=== PATIENT | female | born 1940 | race Caucasian/White ===

== ENCOUNTER 2016-09-03 09:49 | Emergency (ER) | payer MEDICARE ==
--- NOTE | 2016-09-03 10:11 | Emergency Department Record ---
History of Present Illness - General Chief Complaint: Shortness of breath Stated Complaint: SADE Time Seen by Provider: 09/03/16 10:09 Source: Patient Mode of Arrival: Ambulatory Limitations: No limitations - History of Present Illness Initial Comments: The patient is here due to a 2 hour hx of R posterior chest pain and SOB. The pain is sharp and stabbing and is worse with any movement and twisting. When she sits or lies still she has no pain. She denies any L sided CP, cough, fever , chills, or AP. The patient does have a hx of a PE in Dec and is on Coumadin now. Her last INR check was about a month ago and was therapeutic per the patient. MD Complaint: Chest pain Onset/Timin -: Hour(s) Radiation: Other Severity scale (1-10): 10 Quality: Sharp Consistency: Intermittent Improves With: Nothing Worsens With: Other Associated Symptoms: Pain with inspiration Treatments Prior to Arrival: None - Related Data Home Oxygen Therapy: No Home Medications Medication Instructions Recorded Confirmed Last Taken Warfarin Sodium 5 mg PO QD tab 07/26/16 09/03/16 09/02/16 Buspirone HCl [Buspar] 7.5 mg PO DAILY 09/03/16 09/03/16 09/02/16 Lisinopril 10 mg PO BID 09/03/16 09/03/16 09/03/16 Allergies Allergy/AdvReac Type Severity Reaction Status Date / Time codeine [CODEINE] Allergy Unknown PT UNSURE Verified 09/03/16 10:01 OF REACTION Penicillins [PENICILLINS] Allergy Unknown DIFFICULTY Verified 09/03/16 10:01 BREATHING acetaminophen [From Vicodin] AdvReac Unknown VOMITING Verified 09/03/16 10:01 hydrocodone bitartrate AdvReac Unknown VOMITING Verified 09/03/16 10:01 [From Vicodin] Travel Screening - Travel/Exposure Within Last 30 Days Have you traveled within the last 30 days?: No Review of Systems Constitutional: Denies: Chills, Fever Eyes: Denies: Eye discharge ENT: Denies: Congestion, Throat pain Respiratory: Reports: Dyspnea. Denies: Cough, Hemoptysis Cardiovascular: Denies: Arrhythmia Endocrine: Denies: Fatigue Gastrointestinal: Denies: Abdominal pain Genitourinary: Denies: Dysuria Musculoskeletal: Denies: Arthralgia Past Medical History - SOCIAL HISTORY Smoking Status: Never smoker Alcohol Use: None Drug Use: None - RESPIRATORY Hx Respiratory Disorders: Yes Hx Pulmonary Embolism: Yes (2015) - CARDIOVASCULAR Hx Cardio Disorders: Yes Hx Hypertension: Yes - NEURO Hx Neuro Disorders: Yes Hx TIA: Yes - GI Hx GI Disorders: Yes Hx Nausea/Vomiting: Yes - Hx Genitourinary Disorders: No - ENDOCRINE Hx Endocrine Disorders: Yes Hx Thyroid Disease: Yes - MUSCULOSKELETAL Hx Musculoskeletal Disorders: No - PSYCH Hx Psych Problems: Yes Hx Anxiety: Yes Hx Depression: Yes - HEMATOLOGY/ONCOLOGY Hx Hematology/Oncology Disorders: No Family Medical History Any Significant Family History?: No Physical Exam - General General Appearance: Alert, Oriented x3, Cooperative, No acute distress - Head Head exam: Atraumatic, Normocephalic, Normal inspection - Eye Eye exam: Normal appearance, PERRL - Neck Neck exam: Normal inspection, Full ROM. negative: Tenderness - Respiratory Respiratory exam: Normal lung sounds bilaterally, Chest wall tenderness (The R posterior chest pain is 100% reproducible with palpation of the R posterior lateral ribs.). negative: Respiratory distress - Cardiovascular Cardiovascular Exam: Regular rate, Normal rhythm, Normal heart sounds - GI/Abdominal GI/Abdominal exam: Soft, Normal bowel sounds. negative: Tenderness - Extremities Extremities exam: Normal inspection, Full ROM, Normal capillary refill. negative: Tenderness Image of Full Body: 1 - very tender to palpation which does reproduce the pain 100%. - Neurological Neurological exam: Alert, Normal gait. negative: Abnormal gait, Motor sensory deficit Course Vital Signs 09/03/16 09:56 Temperature 98.2 F Pulse Rate 73 Respiratory 20 Rate Blood Pressure 151/73 Pulse Ox 96 - Reevaluation(s) Reevaluation #1: The patient is doing a lot better at this time. She denies any pain, SOB, or SADE but is still having the R sided pain with any twisting or bending. 09/03/16 11:11 Reevaluation #2: The patient is doing very well at this time. She denies any pain or discomfort. On exam she is still having some pain with movement and palpation. I did again explain the test results to the patient and family and did discuss the need for F/U with her PCP. 09/03/16 11:19 Medical Decision Making - Data Complexity MDM Data: Labs Ordered and/or Reviewed, X-Ray Ordered and/or Reviewed, EKG Ordered and/or Reviewed - Lab Data Result diagrams: 09/03/16 10:07 09/03/16 10:07 - EKG Data -: EKG Interpreted by Me EKG: No Acute Changes, Unchanged From Previous - Radiology Data Radiology results: Report reviewed (CXR: Neg) Disposition Disposition: Discharge Clinical Impression: Chest wall pain Disposition: Home, Self-Care Condition: (1) Good Instructions: Chest Wall Pain (ED) Additional Instructions: Please use Tylenol or Tramadol for pain. Please continue your regular medicines. Please see your PCP for recheck if not better in 2 days and return to the ER for any increasing pain, fever, trouble breathing or shortness of breath. Forms: Patient Portal Access Time of Disposition: 11:21 Quality - Quality Measures Quality Measures: N/A - Blood Pressure Screening View Details: Yes Blood Pressure Classification: Hypertensive Reading Systolic Measurement: 151 Diastolic Measurement: 73 Screening for High Blood Pressure: < Pre-Hypertensive BP, F/U Documented > [ [id number]] Pre-Hypertensive Follow-up Interventions: Follow-up with rescreen every year.
[2016-09-03] MEDS ORDERED: TRAMADOL HCL 50 MG TABLET PO ONE (10:25)
[2016-09-03 10:36] LABS: BASO % 0.5 % (0-6); GRAN % 67.5 % (47-80); HEMATOCRIT 44.3 % (35.0-47.0); HEMOGLOBIN 14.1 gm/dl (11.6-16.0); LYMPH % 20.8 % (16-45); MEAN CORPUSCULAR HEMOGLOBIN 24.8 pg (27-33); MEAN CORPUSCULAR HGB CONC 31.8 g/dl (32-36); MEAN PLATELET VOLUME 9.1 fl (7.4-10.4); MONO % 8.2 % (0-9); PLATELET COUNT 358 K/uL (130-400); RED BLOOD COUNT 5.68 M/uL (3.80-5.40); RED CELL DISTRIBUTION WIDTH 15.6 % (11.5-14.5); WHITE BLOOD COUNT W/O DIFF 8.8 K/uL (4.2-12.2)
[2016-09-03 10:48] LABS: ANION GAP 11.5 (7-16); BLOOD UREA NITROGEN 18 mg/dL (7-17); CARBON DIOXIDE 29.5 mmol/L (22-30); CREATINE PHOSPHOKINASE 32 U/L (30-135); EST GLOMERULAR FILTRATION RATE 57 ml/min; GLUCOSE,RANDOM 108 mg/dL (70-110)
[2016-09-03 10:52] LABS: INR 2.51; PARTIAL THROMBOPLASTIN TIME 36.3 SECONDS (24.5-39.1); PROTHROMBIN TIME (PATIENT) 27.4 SECONDS (9.5-12.1)
[2016-09-03 10:56] LABS: D-DIMER 0.33 mg/L FEU (0-0.59)
[2016-09-03 10:57] LABS: CKMB 0.3 ug/L (0-6)
[2016-09-03 11:01] LABS: TROPONIN I < 0.012 ng/mL (0.00-0.034)
--- NOTE | 2016-09-04 14:30 | RADIOLOGY REPORT ---
EXAM: CHEST, TWO VIEWS HISTORY: ACUTE SHORTNESS OF BREATH AND DIZZINESS. TECHNIQUE: Two views of the chest were obtained. Comparison: Chest x-ray 09/16/15. FINDINGS: The lungs are clear. The cardiac silhouette, diaphragm, and osseous structures are unremarkable for age. IMPRESSION: NEGATIVE CHEST EXAMINATION. JOB NUMBER: [id number] MTDD
== END 2016-09-03 11:32 | disposition home or self-care (01) ==
LOC: ER 09:49
DX: R07.89 Other chest pain (principal); R06.02 Shortness of breath; R42 Dizziness and giddiness; I10 Essential (primary) hypertension; Z79.01 Long term (current) use of anticoagulants
CPT/HCPCS: 71020; 80048; 82550; 82553; 84484; 85025; 85379; 85610; 85730; 93005; 93010; 99284

== ENCOUNTER 2016-12-12 18:58 | Observation (INO) | payer MEDICARE ==
[2016-12-12 19:14] LABS: URINE APPEARANCE CLEAR; URINE BILIRUBIN NEGATIVE (NEGATIVE); URINE BLOOD NEGATIVE (NEGATIVE); URINE COLOR YELLOW; URINE GLUCOSE (UA) NEGATIVE (NEGATIVE); URINE KETONE NEGATIVE (NEGATIVE); URINE LEUKOCYTE ESTERASE NEGATIVE (NEGATIVE); URINE NITRITE NEGATIVE (NEGATIVE); URINE PROTEIN NEGATIVE (NEGATIVE); URINE UROBILINOGEN 0.2 E.U./dL (0.20 - 1.00)
[2016-12-12] MEDS ORDERED: MORPHINE SULFATE 5 MG/ML PFS IVP ONE (19:19)
[2016-12-12] MEDS ORDERED: ONDANSETRON HCL IV 4 MG/2 ML VIAL IVP ONE (19:19)
--- NOTE | 2016-12-12 19:24 | Emergency Department Record ---
History of Present Illness - General Chief Complaint: Abdominal Pain Stated Complaint: PAIN IN RT SIDE Time Seen by Provider: 12/12/16 19:04 Source: Patient Mode of Arrival: Wheelchair Limitations: No limitations - History of Present Illness Initial Comments: 76 yo female presents to ED for continued right sided flank/back pain symptoms. Patient was seen by her PCP 12/07/16 for similar symptoms, negative CT abdomen and pelvis. Patient reports pain with truncal movement, denies fevers, chills, nausea, or vomiting symptoms. Patient denies change in stools. Patient denies urinary symptoms or history of kidney stones. Patient has been taking Flexeril for her symptoms that has not significantly improved. MD Complaint: Flank pain Onset/Timin -: Week(s) Location: R Flank Severity: Moderate Quality: Aching Consistency: Intermittent Improves With: Nothing Worsens With: Movement Associated Symptoms: Denies other symptoms - Related Data Allergies Allergy/AdvReac Type Severity Reaction Status Date / Time codeine [CODEINE] Allergy Unknown PT UNSURE Verified 12/12/16 19:20 OF REACTION Penicillins [PENICILLINS] Allergy Unknown DIFFICULTY Verified 12/12/16 19:20 BREATHING hydrocodone bitartrate AdvReac Unknown VOMITING Verified 12/12/16 19:20 [From Vicodin] Review of Systems Constitutional: Denies: Chills, Fever, Malaise, Night sweats Eyes: Denies: Eye discharge, Eye pain ENT: Denies: Congestion, Ear pain Respiratory: Denies: Cough, Dyspnea Cardiovascular: Denies: Chest pain, Dyspnea on exertion Endocrine: Denies: Fatigue, Heat or cold intolerance Gastrointestinal: Denies: Abdominal pain, Constipation, Nausea, Vomiting Genitourinary: Denies: Incontinence, Retention Musculoskeletal: Reports: Back pain. Denies: Arthralgia, Gout, Joint swelling Skin: Denies: Bruising, Change in color Neurological: Denies: Abnormal gait, Confusion, Headache, Seizure Psychiatric: Denies: Anxiety Hematological/Lymphatic: Denies: Anemia Past Medical History - SOCIAL HISTORY Smoking Status: Never smoker Drug Use: None - RESPIRATORY Hx Respiratory Disorders: Yes Hx Pulmonary Embolism: Yes (2015) - CARDIOVASCULAR Hx Cardio Disorders: Yes Hx Hypertension: Yes - NEURO Hx Neuro Disorders: Yes Hx TIA: Yes - GI Hx GI Disorders: Yes Hx Nausea/Vomiting: Yes - Hx Genitourinary Disorders: No - ENDOCRINE Hx Endocrine Disorders: Yes Hx Thyroid Disease: Yes - MUSCULOSKELETAL Hx Musculoskeletal Disorders: No - PSYCH Hx Psych Problems: Yes Hx Anxiety: Yes Hx Depression: Yes - HEMATOLOGY/ONCOLOGY Hx Hematology/Oncology Disorders: No Physical Exam - General General Appearance: Alert, Oriented x3, Cooperative, Moderate distress Limitations: No limitations - Head Head exam: Atraumatic, Normocephalic, Normal inspection Head exam detail: negative: Abrasion, Contusion, Greer's sign, General tenderness, Hematoma, Laceration - Eye Eye exam: Normal appearance. negative: Conjunctival injection, Periorbital swelling, Periorbital tenderness, Scleral icterus - ENT Ear exam: negative: Auricular hematoma, Auricular trauma Nasal Exam: negative: Active bleeding, Discharge, Dried blood, Foreign body Mouth exam: negative: Drooling, Laceration, Muffled voice, Tongue elevation - Neck Neck exam: Normal inspection. negative: Meningismus, Tenderness - Respiratory Respiratory exam: Normal lung sounds bilaterally. negative: Rales, Respiratory distress, Rhonchi, Stridor - Cardiovascular Cardiovascular Exam: Regular rate, Normal rhythm, Normal heart sounds - GI/Abdominal GI/Abdominal exam: Soft. negative: Rebound, Rigid, Tenderness - Rectal Rectal exam: Deferred - exam: Deferred - Extremities Extremities exam: Normal inspection. negative: Calf tenderness, Pedal edema, Tenderness - Back Back exam: Reports: CVA tenderness (R). Denies: CVA tenderness (L) - Neurological Neurological exam: Alert, Normal gait, Oriented X3 - Psychiatric Psychiatric exam: Normal affect, Normal mood - Skin Skin exam: Normal color. negative: Abrasion Type of lesion: negative: abrasion Course Vital Signs 12/12/16 19:15 Temperature 98.0 F Pulse Rate 76 Respiratory 20 Rate Blood Pressure 190/76 Pulse Ox 98 - Reevaluation(s) Reevaluation #1: 12/12/16 19:19 Previous records reviewed: CT Abdomen and Pelvis 12/07/16 No acute process, DJD L3-L4 11/23/16: AAS: No acute process, abundance of stool present Previous visit to ED 09/03/16: CXR: Negative for an acute process Reevaluation #2: 12/12/16 20:21 Labs reviewed and are grossly unremarkable for an acute process. Reevaluation #3: 12/12/16 20:27 Patient and family were updated on all results, patient reports significant pain despite Morphine administration. Dilaudid IV ordered for continued pain symptoms, CTA chest ordered for further evaluation. Reevaluation #4: 12/12/16 21:20 CTA Chest: No PE, no dissection, right lateral lung nodule measuring 16 x 9 mm, ?post inflammatory vs. malignancy, recommend 3 month follow-up. Interstitial pulmonary edema. Reevaluation #5: 12/12/16 21:48 Patient reassessed, reports that her pain is till uncontrolled. Will admit for pain control and further evaluation. Medical Decision Making - Lab Data Result diagrams: 12/12/16 19:27 12/12/16 19:27 Lab Results 12/12/16 Range/Units 19:15 Urine Color Yellow Urine Appearance Clear Urine pH 5.5 (5.0-8.0) Ur Specific [place] <= 1.005 (1.002-1.030) Urine Protein Negative (NEGATIVE) Urine Glucose (UA) Negative (NEGATIVE) Urine Ketones Negative (NEGATIVE) Urine Blood Negative (NEGATIVE) Urine Nitrite Negative (NEGATIVE) Urine Bilirubin Negative (NEGATIVE) Urine Urobilinogen 0.2 (0.20 - 1.00) E.U./dL Ur Leukocyte Esterase Negative (NEGATIVE) Disposition Disposition: Admit Clinical Impression: Chronic right flank pain Disposition: Still a Patient at [facility] Decision to Admit: Admit from ER Decision to Admit Date: 12/12/16 Decision to Admit Time: 21:48 Condition: (2) Stable Forms: Patient Portal Access Time of Disposition: 21:48 Quality - Quality Measures Quality Measures: N/A - Blood Pressure Screening Does Patient Have Any of the Following: Active Dx of HTN Blood Pressure Classification: Hypertensive Reading Systolic Measurement: 190 Diastolic Measurement: 76 Screening for High Blood Pressure: Patient Exclusion, Hx of HTN [G9744]
[2016-12-12 19:33] LABS: BASO % 0.5 % (0-6); EOS % 3.5 % (0-6); GRAN % 61.5 % (47-80); LYMPH % 25.8 % (16-45); MEAN CELL VOLUME 76.8 fl (81-97); MEAN CORPUSCULAR HEMOGLOBIN 24.3 pg (27-33); MEAN CORPUSCULAR HGB CONC 31.7 g/dl (32-36); MEAN PLATELET VOLUME 9.3 fl (7.4-10.4); MONO % 8.7 % (0-9); PLATELET COUNT 323 K/uL (130-400); RED BLOOD COUNT 5.34 M/uL (3.80-5.40); WHITE BLOOD COUNT W/O DIFF 8.2 K/uL (4.2-12.2)
[2016-12-12 19:51] LABS: ALB/GLOB RATIO 1.1 (1.1-1.8); ALBUMIN 4.1 g/dL (4.0-5.0); ALKALINE PHOSPHATASE 78 U/L (35-104); ALT/SGPT 9 U/L (<33); AST/SGOT 13 U/L (10.0-35.0); BLOOD UREA NITROGEN 15 mg/dL (8-23); CREATININE 0.8 mg/dL (0.5-0.9); EST GLOMERULAR FILTRATION RATE > 60 mL/min; GLUCOSE,RANDOM 112 mg/dL (74-109); LIPASE 33 U/L (13-60); TOTAL PROTEIN 7.8 g/dL (6.6-8.7)
[2016-12-12] MEDS ORDERED: HYDROMORPHONE HCL 1MG/ML **SYRINGE IVP ONE (20:26)
[2016-12-12] MEDS ORDERED: 0.9 % SODIUM CHLORIDE 1000ML 500 ML IV SCH (20:30)
[2016-12-12 21:35] LABS: INR 1.28; PROTHROMBIN TIME (PATIENT) 13.9 SECONDS (9.5-12.1)
[2016-12-12] MEDS ORDERED: LIDOCAINE 5% PATCH TOP ONE (21:53)
[2016-12-13] MEDS ORDERED: LISINOPRIL 20 MG PO SCH (00:40)
[2016-12-13] MEDS ORDERED: 0.9 % SODIUM CHLORIDE 1000ML 1,000 ML IV PRN (00:40)
[2016-12-13] MEDS ORDERED: HYDROMORPHONE HCL 1MG/ML **SYRINGE IVP PRN (00:40)
[2016-12-13] MEDS ORDERED: ASPIRIN 325 MG TABLET PO SCH ×2 (00:40→10:00)
[2016-12-13] MEDS ORDERED: DIAZEPAM 5 MG/1 ML TUBX IVP PRN (00:40)
[2016-12-13] MEDS ORDERED: POLYETHYLENE GLY 17 GM PACKET PO PRN (00:40)
[2016-12-13] MEDS: BUSPIRONE 5 MG TABLET PO SCH ×2 (00:52→10:43)
[2016-12-13] MEDS: NITROFURANTOIN MONO 100 MG CAPSULE PO SCH ×2 (00:53→10:42)
[2016-12-13] MEDS ORDERED: WARFARIN 5 MG TAB PO ONE (01:02)
[2016-12-13] MEDS ORDERED: FLU VAC QS 2017-18 (INPT, 6MO+) 60MCG/0.5ML IM ONE (01:35)
[2016-12-13] MEDS ORDERED: LEVOTHYROXINE SODIUM 125 MCG TABLET PO SCH (07:00)
--- NOTE | 2016-12-13 07:51 | CT ANGIOGRAM REPORT ---
EXAM: CTA OF THE CHEST HISTORY: ACUTE RIGHT SIDED CHEST PAIN FOR ONE WEEK. TECHNIQUE: Contiguous axial images from the thoracic inlet to the upper abdomen were obtained after the uneventful intravenous administration of 80 ml of Omnipaque 350. Sagittal and coronal two dimensional MIP as well as 3D/MIP reformatted images were obtained for better anatomic delineation. Comparison: CTA of the chest 01/16/16. FINDINGS: There is a juxtapleural nodular density in the right upper lobe laterally best seen on axial image 45 of 137 measuring 16 x 9 mm. Minimal scattered ground glass density with minimal smooth interlobular septal thickening at the apices. No dense consolidative change. No pleural effusion. The central airways are patent. The heart is mildly enlarged, but there is no pericardial effusion. Mild coronary artery calcification. No enlarged lymph nodes in the thorax. The pulmonary arteries are well opacified. Moderate beam hardening artifact compromises evaluation for PE although allowing for this no filling defect to suggest pulmonary embolism. Mild calcification of the thoracic aorta without aneurysm or or dissection. The upper abdomen is unremarkable. No lytic or blastic osseous lesion. IMPRESSION: 1. ALLOWING FOR BEAM HARDENING ARTIFACT NO EVIDENCE OF PULMONARY EMBOLISM. NO THORACIC AORTIC DISSECTION. 2. MILD CARDIOMEGALY. 3. JUXTAPLEURAL DENSITY IN THE RIGHT UPPER LOBE LATERALLY MEASURING 16 X 9 MM. DIFFERENTIAL WOULD INCLUDE A FOCUS OF PNEUMONITIS/SCARRING OR MALIGNANCY. RECOMMEND THREE MONTH FOLLOW-UP CHEST CT TO EXCLUDE PROGRESSION. 4. MILD CARDIOMEGALY. 5. THERE MAY BE MINIMAL PULMONARY EDEMA. JOB NUMBER: [id number] MTDD
[2016-12-13] MEDS ORDERED: CITALOPRAM 20 MG TABLET PO SCH (10:00)
[2016-12-13] MEDS ORDERED: HYDROCHLOROTHIAZIDE 25 MG TABLET PO SCH (10:00)
[2016-12-13] MEDS ORDERED: ISOSORBIDE MONONITRATE 30 MG TAB.ER.24H PO SCH (10:00)
[2016-12-13] MEDS ORDERED: LISINOPRIL 10 MG TABLET PO SCH (10:00)
[2016-12-13] MEDS ORDERED: CYCLOBENZAPRINE 10MG TABLET PO PRN (10:50)
[2016-12-13] MEDS ORDERED: HYDROCHLOROTHIAZIDE 12.5 MG CAPSULE PO SCH (11:00)
[2016-12-13] MEDS ORDERED: METHYLPREDNISOLONE 80MG/VIAL IM ONE (14:25)
--- NOTE | 2016-12-13 15:16 | Discharge Note ---
VTE H&P Assessment - Risk for VTE Risk for VTE: Yes Risk Level: Moderate Risk Assessment Date: 12/13/16 Risk Assessment Time: 15:09 VTE Orders Placed or Will Be Placed: Yes VTE Reason for No Prophylaxis: Not Indicated Discharge Medications - Discharge Medications Prescriptions: Cyclobenzaprine HCl [Flexeril] 10 mg PO TID #30 tablet Prednisone [Prednisone 10Mg] 10 mg PO ASDIR #30 tab Tramadol HCl 50 mg PO Q8H #60 tab Home Medications: Ambulatory Orders Buspirone HCl [Buspar] 7.5 mg PO DAILY 12/13/16 [Last Taken Unknown] Cyclobenzaprine HCl [Flexeril] 10 mg PO TID #30 tablet 12/13/16 [Last Taken Unknown] Hydrochlorothiazide 12.5 mg PO DAILY 12/13/16 [Last Taken Unknown] Hydrochlorothiazide [Hctz] 12.5 mg PO DAILY capsule 12/13/16 [Last Taken Unknown] Nitrofurantoin [place] [Macrobid] 100 mg PO BID capsule 12/13/16 [Last Taken Unknown] Polyethylene Glycol 3350 [Miralax] 17 gm PO DAILY PRN packet 12/13/16 [Last Taken Unknown] Prednisone [Prednisone 10Mg] 10 mg PO ASDIR #30 tab 12/13/16 [Last Taken Unknown ] Tramadol HCl 50 mg PO Q8H #60 tab 12/13/16 [Last Taken Unknown] Warfarin Sodium [Coumadin] 5 mg PO QHS 12/13/16 [Last Taken Unknown] Discharge Note - Date Date of Discharge Note: 12/13/16 Disposition: Home, Self-Care Condition: (2) Stable Additional Instructions: follow up with the [facility] in one week Please set up a consult with Dr. Carter for low back pain please set up a consult with pulmonary for abnormal CTA of chest with lesion in Right upper lobe 16mm by [address] Sanchez's group at [facility] heat to back three times a day 20 minutes low heat Forms: Patient Portal Access
[2016-12-13] MEDS ORDERED: WARFARIN 5 MG TAB PO SCH (17:00)
[2016-12-14] MEDS ORDERED: BUSPIRONE 5 MG TABLET PO SCH (10:00)
--- NOTE | 2016-12-14 12:40 | History and Physical Report ---
DATE OF ADMISSION: 12/12/2016 CHIEF COMPLAINT: Right flank pain. HISTORY OF PRESENT ILLNESS: This 76-year-old female presented with right-sided pain for [address] of the abdomen and pelvis was done approximately on 12/07/2016 which was negative. She presented to the emergency department, seen by Dr. Andres who put her in the hospital for observation with a diagnosis of chronic right flank pain. He did a CT of the chest which showed no PE, no dissection, right lateral lung nodule measuring 16 x 9 mm. They recommended 3-month followup. Could be inflammatory versus malignancy. Has interstitial pulmonary findings. The radiologist said mild pulmonary edema but clinically she does not have any symptoms of pulmonary edema. The UA was negative. WBC showing 8200, hemoglobin 13.0. Her INR was slightly low at 1.28. She is on Coumadin for a PE that she had about 6 months ago. When she moves, it hurts worse. When you palpate on the iliac crest on the right side, it hurts worse. PAST MEDICAL HISTORY: PE, on Coumadin therapy, December 2015. She has had some TIAs in the past, hypertension, hypothyroidism, anxiety and depression. She has had this pain for 2-3 months. She has a history of coronary artery disease. PAST SURGICAL HISTORY: Cholecystectomy, appendectomy, and knee surgery. MEDICATIONS: 1. Coumadin 5 mg at bedtime. 2. Hydrochlorothiazide 12.5 mg daily. 3. BuSpar 7.5 mg daily. 4. Tramadol 100 mg at h.s. 5. Phenergan 25 mg q.6 h. p.r.n. nausea. 6. MiraLax 17 g daily p.r.n. 7. Nitrofurantoin 100 mg b.i.d. 8. Levothyroxine 125 mcg daily. 9. Isosorbide mononitrate 30 mg daily. 10. Walton q.6 h. p.r.n. 11. Flexeril 10 mg t.i.d. p.r.n. 12. Citalopram 20 mg daily. 13. Aspirin 325 daily. 14. Ketoconazole 15 g topically applied b.i.d. ALLERGIES: CODEINE, PENICILLIN, VICODIN (the hydrocodone part of it; however, she was given Walton and did fine with that). SOCIAL HISTORY: Never smoked. No alcohol or drug use. No significant family history. REVIEW OF SYSTEMS: HEENT: No upper respiratory infection symptoms, cough, cold, or congestion. Cardiovascular: No chest pain, palpitations, or arrhythmia. Respiratory: No cough, cold, or congestion. Gastrointestinal: No nausea, vomiting, diarrhea, black stools, or bloody stools. Genitourinary: No dysuria, hematuria, frequency, or burning on urination. Musculoskeletal: She has had low back problems for a long time. She also has some right hip pain but it was evaluated by Dr. Aguirre who felt that the pain was more coming from her back rather than her hip. Neurological: She has had some TIAs in the past but no CVA, and she is slow to walk. She walks with a walker. She is overweight. No seizures. No headaches. Endocrine: She has hypothyroidism. No diabetes mellitus. Integument: No rash, ulcers, change in moles, or yellow skin. PHYSICAL EXAMINATION: VITALS: Height 5 feet 6 inches, weight 234 pounds. Temperature 98.2, pulse 58, blood pressure 148/60, respiratory rate 16, pulse ox 93% on room air. HEENT: Pupils are equal, round, and reactive to light and accommodation. Extraocular muscles are intact. Throat is clear. Nose is clear. Tympanic membranes are nathan. NECK: Supple. No jugular venous distention. No hepatojugular reflux. No carotid bruits. Thyroid is smooth. CARDIOVASCULAR: Regular rate and rhythm without murmurs, clicks, rubs, or gallops. RESPIRATORY: Clear to auscultation and percussion. ABDOMEN: Soft, nontender. No hepatosplenomegaly, no masses, no tenderness. Bowel sounds are active. No bruits. EXTREMITIES: There is pain over the right iliac crest. There is also pain at the right SI joint and the lower lumbar spine area. This is worse when moving, bending, standing flexion, or extending from a standing position. BREASTS: Exam deferred. GYNECOLOGICAL: Exam deferred. RECTAL: Exam deferred. NEUROLOGIC: Cranial nerves II-XII intact. No gross defects. Sensation normal, strength normal. Deep tendon reflexes equal bilaterally with Babinski negative. MENTAL STATUS: Alert and oriented x3. IMPRESSION: 1. Iliac crest pain on the right side. 2. Lumbar strain. 3. SI joint dysfunction on the right back area. 4. CTA abnormality in the right upper lobe of the lung, 6 x 9 mm spot in the pleural space next to the ribs and lungs. Needs 3-month followup. Possible biopsy. Will set up a referral to Pulmonary. 5. Hypothyroidism. 6. History of PE, on Coumadin therapy. PLAN: Discharge patient. Heat 3 times a day to her back for 20 minutes. We will give her a shot of Depo-Medrol to help the inflammation, 80 mg IM. Do a prednisone taper from 40 mg for 3 days, then 30 mg for 3 days, then 20 mg a day for 3 days, 10 mg a day for 3 days. We will consult Dr. Carter for back pain. Consult Pulmonary with abnormal CT of the chest findings. Pain control with tramadol 50 mg t.i.d. and Flexeril 10 mg t.i.d. and the prednisone taper. MTDD
--- NOTE | 2016-12-14 13:00 | Discharge Summary ---
DATE OF DISCHARGE: 12/13/2016 at about 2:55 p.m. DISCHARGE DIAGNOSES: 1. Low back pain. 2. Lumbar strain. 3. Iliac crest pain on the right side. 4. SI joint dysfunction. 5. CT of the chest abnormality with a lesion 16 x 9 mm right upper lobe next to the pleural space, ribs, and lungs. The radiologist recommended a repeat CT in 3 months. 6. Status post hypothyroidism. 7. Status post history of PE and on Coumadin therapy. 8. Status post obesity. ATTENDING PHYSICIAN: Feng Reid DO REASON FOR HOSPITALIZATION: Right iliac crest pain and right flank pain. The patient was admitted throughout the emergency department as an observation patient. She had a CT of the chest which was negative for PE. A small abnormality was seen at 16 x 9 mm in the right upper lobe and Dr. Andres evaluated the patient and put her in for observation and pain control. THERAPY PROVIDED: The patient was given some morphine and Dilaudid. Feeling better today. She was given her home medications. Also, a urine was done which was negative. Laboratory was unremarkable. She was given a shot of Depo-Medrol 80 mg IM, started on a prednisone taper to help her pain and inflammation. She was instructed to use Ultram or tramadol, which she said works the best for her, 3 times a day 50 mg to 100 mg 3 times a day. Flexeril 10 mg t.i.d. CONDITION ON DISCHARGE: Stable and improved but still having pain in the right iliac crest area on palpation and movement. HOSPITAL COURSE: Improved. DISCHARGE INSTRUCTIONS: As stated. Will follow up at the [facility] in 1-[address] Deng or one of the nurse practitioners. Follow up with Dr. Carter as a consult for back pain. Follow up with Pulmonary for the abnormal CTA. Prednisone taper starting at 40 mg a day for 3 days, then 30 mg a day for 3 days, 20 mg a day for 3 days, and 10 mg a day for 3 days. Heat to the back 3 times a day. Pain medications; tramadol 50 mg to 100 mg t.i.d., Flexeril 10 mg t.i.d. MTDD
== END 2016-12-13 17:06 | disposition home or self-care (01) ==
LOC: ER 18:58 → MEDSURG 12-13 00:07
PROVIDERS: ADMIT Emergency Medicine; ATTEND Emergency Medicine
DX: S39.012A Strain of muscle, fascia and tendon of lower back, initial encounter (principal); R07.89 Other chest pain; M99.04 Segmental and somatic dysfunction of sacral region; Z86.711 Personal history of pulmonary embolism; Z79.01 Long term (current) use of anticoagulants; E03.9 Hypothyroidism, unspecified; I25.10 Atherosclerotic heart disease of native coronary artery without angina pectoris; Z86.73 Personal history of transient ischemic attack (TIA), and cerebral infarction without residual deficits; E66.9 Obesity, unspecified
CPT/HCPCS: 99285 ×2; 96374; 96375; 83690; 85025; 85610; 80053; 81003; 71275; 94760; 90686; G0378; Q9967; J2405; J2270; J1170; 99236; J1040; J7030

== ENCOUNTER 2017-04-23 17:53 | Emergency (ER) | payer MEDICARE ==
--- NOTE | 2017-04-23 18:40 | Emergency Department Record ---
History of Present Illness - General Chief Complaint: Slurred speech Stated Complaint: LT HAND SHAKY,HEADACHE,SLURRED SPEECH Time Seen by Provider: 04/23/17 18:32 Source: Patient Mode of Arrival: Wheelchair Limitations: No limitations - History of Present Illness Initial Comments: 76 yo female presents to ED for evaluation of slurred speech and "shaking of the left upper extremity worse than usual" that began approximately 90 minutes ago. Patient reports that her symptoms were sudden-onset while at dinner, reports similar symptoms previously related to TIAs. Patient and her friend report improvement in her symptoms currently from the onset 90 minutes ago. 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 Patient denies a history of PVD, CAD, or stent placement. Onset/Timin -: Minutes(s) Location: Speech, Other History of same: Yes Place: Other Severity: Mild Quality: Improving Improves With: None Worsens With: None On Anticoagulants: No Associated Symptoms: Shortness of breath Treatments Prior to Arrival: None - [place] Coma Scale Eye Response: (4) Open spontaneously Motor Response: (6) Obeys commands Verbal Response: (5) Oriented [place] Total: 15 - Symptoms of Stroke Onset of Symptoms Date: 04/23/17 Onset of Symptoms Time: 17:45 Symptoms of stroke: Muscle Weakness, Slurred Speech - Related Data Allergies/Adverse Reactions: Allergies Allergy/AdvReac Type Severity Reaction Status Date / Time codeine [CODEINE] Allergy Unknown PT UNSURE Unverified 04/18/17 11:50 OF REACTION Penicillins [PENICILLINS] Allergy Unknown DIFFICULTY Unverified 04/18/17 11:50 BREATHING cyclobenzaprine HCl AdvReac Intermediate too sleepy Unverified 04/18/17 11:50 [From Flexeril] ibuprofen AdvReac Intermediate burning in Unverified 04/18/17 11:50 stomach, nausea hydrocodone bitartrate AdvReac Unknown VOMITING Unverified 04/18/17 11:50 [From Vicodin] Travel Screening - Travel/Exposure Within Last 30 Days Have you traveled within the last 30 days?: No Review of Systems Constitutional: Denies: Chills, Fever, Malaise, Night sweats Eyes: Denies: Eye discharge, Eye pain ENT: Denies: Congestion, Ear pain, Epistaxis Respiratory: Denies: Cough, Dyspnea Cardiovascular: Denies: Chest pain, Dyspnea on exertion Endocrine: Denies: Fatigue, Heat or cold intolerance Gastrointestinal: Denies: Abdominal pain, Nausea, Vomiting Genitourinary: Denies: Incontinence, Retention Musculoskeletal: Denies: Arthralgia, Back pain Skin: Denies: Bruising, Change in color Neurological: Reports: Headache, Tremors, Other (slurred speech, now improved per patient). Denies: Abnormal gait, Confusion, Paresthesias, Tingling Psychiatric: Denies: Anxiety Hematological/Lymphatic: Denies: Anemia, Blood Clots Past Medical History - SOCIAL HISTORY Smoking Status: Former smoker Alcohol Use: None Drug Use: None - RESPIRATORY Hx Respiratory Disorders: Yes Hx Pulmonary Embolism: Yes (2015) Hx Sleep Apnea: Yes - CARDIOVASCULAR Hx Cardio Disorders: Yes Hx Cardiac Cath: Yes Hx Chest Pain: Yes Hx CHF: Yes Hx Edema: Yes (left sided) Hx Hypertension: Yes Hx Hypotension: Yes Hx Palpitations: Yes - NEURO Hx Neuro Disorders: Yes Hx Dizziness: Yes Hx Neuropathy: Yes (left hand) Hx Speech Problem: Yes (transient exp aphasia) Hx TIA: Yes - GI Hx GI Disorders: Yes Hx Reflux: Yes Hx Nausea/Vomiting: Yes (occasional nausea) Hx Wt Loss/Wt Gain: Yes (lost 91#) - Hx Genitourinary Disorders: Yes Hx UTI: Yes - ENDOCRINE Hx Endocrine Disorders: Yes Hx Thyroid Disease: Yes - MUSCULOSKELETAL Hx Musculoskeletal Disorders: No Hx Arthritis: Yes - PSYCH Hx Psych Problems: Yes Hx Anxiety: Yes Hx Depression: Yes - HEMATOLOGY/ONCOLOGY Hx Hematology/Oncology Disorders: Yes Hx Clotting Problems: Yes (PE) Family Medical History Any Significant Family History?: Yes Hx Anxiety: Mother Hx Cancer: Father, Mother, Brother/Sister Hx Diabetes: Grandparents Hx HTN: Brother/Sister Hx Kidney Disease: Brother/Sister *Kidney Comment: brother Hx Liver Disease: Brother/Sister *Liver Comment: sister Physical Exam - General General Appearance: Alert, Oriented x3, Cooperative, Mild distress, Other (No slurred speech or facial asymmetry noted on examination.) Limitations: No limitations - Head Head exam: Atraumatic, Normocephalic, Normal inspection Head exam detail: negative: Abrasion, Contusion, Greer's sign, General tenderness, Hematoma, Laceration - Eye Eye exam: Normal appearance. negative: Conjunctival injection, Periorbital swelling, Periorbital tenderness, Scleral icterus - ENT Ear exam: negative: Auricular hematoma, Auricular trauma Nasal Exam: negative: Active bleeding, Discharge, Dried blood, Foreign body Mouth exam: negative: Drooling, Laceration, Muffled voice, Tongue elevation - Neck Neck exam: Normal inspection. negative: Meningismus, Tenderness - Respiratory Respiratory exam: Normal lung sounds bilaterally. negative: Respiratory distress, Rhonchi, Stridor, Wheezes - Cardiovascular Cardiovascular Exam: Regular rate, Normal rhythm, Normal heart sounds - GI/Abdominal GI/Abdominal exam: Soft. negative: Rebound, Rigid, Tenderness - Rectal Rectal exam: Deferred - exam: Deferred - Extremities Extremities exam: Normal inspection. negative: Calf tenderness, Pedal edema, Tenderness - Back Back exam: Denies: CVA tenderness (R), CVA tenderness (L) - Neurological Neurological exam: Alert, CN II-XII intact, Motor sensory deficit, Oriented X3, Other (LUE strength 4/5 (chronic per patient and frined), LLE strength 4/5 ( also chronic per patient and friend). health unit clerk II-XII grossly intact, no facial asymmetry noted.) - Psychiatric Psychiatric exam: Normal affect, Normal mood - Skin Skin exam: Normal color. negative: Abrasion Type of lesion: negative: abrasion Course Vital Signs 04/23/17 18:13 Temperature 97.8 F Pulse Rate [ 63 Management Assistant ] Respiratory 14 Rate Blood Pressure 181/80 [Left Arm] Pulse Ox 99 - Reevaluation(s) Reevaluation #1: 04/23/17 18:41 EKG: NSR 61 Normal axis, normal intervals NO acute ST-T wave changes with artifact present MDM: Patient was seen and examined, NIH stroke scale is 2-3 on examination (* however family reports that the LUE/LLE weakness are chronic, no new deficits are elicited on examination). Patient is NOT a tPA candidate based on her score , INR is pending as well. Patient is going for non-contrast stat CT brain now. 04/23/17 19:11 Reevaluation #2: 04/23/17 18:51 CT Brain: No acute bleed noted on examination. Reevaluation #3: 04/23/17 19:00 Labs reviewed, patient's INR 1.6, labs are otherwise grossly unremarkable for an acute process. Patient reassessed and reports that her symptoms have continued to be resolved. Will initiate transfer at this time. ASA ordered as well. Reevaluation #4: 04/23/17 19:14 Case was discussed with Dr. Sutton, will accept for further neurologic evaluation. Patient was updated on the plan for transfer for further evaluation. Medical Decision Making - Lab Data Result diagrams: 04/23/17 18:15 04/23/17 18:15 Disposition Disposition: Transfer Clinical Impression: TIA (transient ischemic attack) Qualifiers: Transient cerebral ischemia type: unspecified Qualified Code(s): G45.9 - Transient cerebral ischemic attack, unspecified Disposition: Acute Care Hospital Transfer Transfer To: [facility] Reason For Transfer: Neurology consultation, TIA Accepting Physician: Lesley Time Discussed w/Accepting Physician: 19:11 Condition: (2) Stable Forms: Patient Portal Access Time of Disposition: 19:14 Quality - Quality Measures Quality Measures: N/A - Blood Pressure Screening Does Patient Have Any of the Following: Active Dx of HTN Blood Pressure Classification: Hypertensive Reading Systolic Measurement: 150 Diastolic Measurement: 69 Screening for High Blood Pressure: Patient Exclusion, Hx of HTN [G9744]
[2017-04-23 18:41] LABS: BASO % 0.6 % (0-6); EOS % 4.5 % (0-6); GRAN % 60.2 % (47-80); HEMATOCRIT 41.7 % (35.0-47.0); LYMPH % 21.9 % (16-45); MEAN CELL VOLUME 77.9 fl (81-97); MEAN CORPUSCULAR HEMOGLOBIN 24.3 pg (27-33); MEAN CORPUSCULAR HGB CONC 31.2 g/dl (32-36); MEAN PLATELET VOLUME 9.1 fl (7.4-10.4); MONO % 12.8 % (0-9); PLATELET COUNT 285 K/uL (130-400); RED BLOOD COUNT 5.35 M/uL (3.80-5.40); RED CELL DISTRIBUTION WIDTH 16.1 % (11.5-14.5); WHITE BLOOD COUNT W/O DIFF 7.1 K/uL (4.2-12.2)
[2017-04-23 18:51] LABS: BILIRUBIN,TOTAL 0.4 mg/dL (0.2-1.0)
[2017-04-23 18:52] LABS: TOTAL PROTEIN 6.6 g/dL (6.6-8.7)
[2017-04-23 18:53] LABS: INR 1.6; PROTHROMBIN TIME (PATIENT) 17.8 SECONDS (9.5-12.1)
[2017-04-23 18:57] LABS: ALB/GLOB RATIO 1.5 (1.1-1.8)
[2017-04-23] MEDS ORDERED: ASPIRIN 81 MG CHEWABLE TABLET PO ONE (19:10)
--- NOTE | 2017-04-24 10:56 | CT SCAN REPORT ---
EXAM: CT SCAN OF THE BRAIN WITHOUT CONTRAST HISTORY: HEADACHE WITH NAUSEA AND SHAKING. WEAKNESS AND SLURRED SPEECH. TECHNIQUE: Standard CT imaging of the brain was performed in the axial plane without contrast. Comparison: 11/11/15. FINDINGS: The brain volume is normal for the patient's age. The ventricles and subarachnoid spaces are unremarkable. Mild chronic small vessel ischemic changes are present within the periventricular and subcortical white matter of both cerebral hemispheres and appear unchanged. There is no mass, mass effect, intracranial hemorrhage, visible acute infarct, or abnormal extraaxial fluid. The skull is intact. The orbits, sinuses and mastoids appear normal. IMPRESSION: 1. NO ACUTE INTRACRANIAL ABNORMALITY. 2. MILD CHRONIC SMALL VESSEL ISCHEMIC CHANGES. JOB NUMBER: [id number] MTDD
== END 2017-04-23 20:50 | disposition short-term general hospital (02) ==
LOC: ER 17:53
DX: G45.9 Transient cerebral ischemic attack, unspecified (principal); R11.0 Nausea; R51 Headache; R06.02 Shortness of breath; I10 Essential (primary) hypertension; Z79.01 Long term (current) use of anticoagulants; Z87.891 Personal history of nicotine dependence; Z86.73 Personal history of transient ischemic attack (TIA), and cerebral infarction without residual deficits; Z86.711 Personal history of pulmonary embolism
CPT/HCPCS: 70450; 80053; 85025; 85610; 93005; 93010; 99285

== ENCOUNTER 2018-05-29 20:02 | Emergency (ER) | payer MEDICARE ==
[2018-05-29 20:51] LABS: BASO % 0.6 % (0-6); EOS % 4.4 % (0-6); GRAN % 60.3 % (47-80); HEMATOCRIT 40.7 % (35.0-47.0); HEMOGLOBIN 12.8 gm/dl (11.6-16.0); LYMPH % 26.8 % (16-45); MEAN CELL VOLUME 78.7 fl (81-97); MEAN CORPUSCULAR HEMOGLOBIN 24.8 pg (27-33); MEAN CORPUSCULAR HGB CONC 31.4 g/dl (32-36); MEAN PLATELET VOLUME 8.8 fl (7.4-10.4); MONO % 7.9 % (0-9); PLATELET COUNT 325 K/uL (130-400); RED BLOOD COUNT 5.17 M/uL (3.80-5.40); RED CELL DISTRIBUTION WIDTH 16.1 % (11.5-14.5); WHITE BLOOD COUNT W/O DIFF 8.4 K/uL (4.2-12.2)
[2018-05-29 21:06] LABS: BILIRUBIN,TOTAL 0.4 mg/dL (0.2-1.0)
[2018-05-29 21:07] LABS: TOTAL PROTEIN 6.9 g/dL (6.6-8.7)
[2018-05-29 21:11] LABS: ALB/GLOB RATIO 1.4 (1.1-1.8)
[2018-05-29 21:24] LABS: NTpro B-NATRIURETIC PEPTIDE 161.7 pg/mL (<450)
[2018-05-29 22:49] LABS: URINE APPEARANCE CLEAR; URINE BILIRUBIN NEGATIVE (NEGATIVE); URINE BLOOD NEGATIVE (NEGATIVE); URINE COLOR YELLOW; URINE GLUCOSE (UA) NEGATIVE (NEGATIVE); URINE KETONE TRACE (NEGATIVE); URINE LEUKOCYTE ESTERASE SMALL (NEGATIVE); URINE NITRITE NEGATIVE (NEGATIVE); URINE PROTEIN NEGATIVE (NEGATIVE); URINE UROBILINOGEN 0.2 E.U./dL (0.20 - 1.00)
[2018-05-29 22:57] LABS: URINE BACTERIA 2+; URINE RBC 0 - 2 (NONE SEEN); URINE WBC 36 - 50 (0-2/hpf)
--- NOTE | 2018-05-29 23:14 | Emergency Department Record ---
History of Present Illness - General Chief Complaint: Dizziness Stated Complaint: LOW BLOOD PRESSURE Time Seen by Provider: 05/29/18 20:50 Source: Patient, Family Mode of Arrival: Wheelchair Limitations: No limitations - History of Present Illness Initial Comments: pt brought in by daughter for dizziness w a low bp. she has no pain. she has been restarted on her bp medicine the last few months MD Complaint: Dizziness, Lightheadedness Onset/Timin -: Week(s) Timing: Constant Description: Lightheadedness, Other History of Same: Yes History of Trauma: No Severity: Moderate Improves With: Remaining still, Rest Worsens With: Movement, Position, Exertion Associated Symptoms: Shortness of breath, Weakness - [place] Coma Scale Eye Response: (4) Open spontaneously Motor Response: (6) Obeys commands Verbal Response: (5) Oriented [place] Total: 15 - Symptoms of Stroke Symptoms of stroke: Dizziness - Related Data Previous Rx's Medication Instructions Recorded Nitrofurantoin Hart [Macrobid] 100 mg PO BID #14 capsule 05/30/18 Allergies Allergy/AdvReac Type Severity Reaction Status Date / Time codeine [CODEINE] Allergy Unknown PT UNSURE Unverified 01/04/18 13:25 OF REACTION Penicillins [PENICILLINS] Allergy Unknown DIFFICULTY Unverified 01/04/18 13:25 BREATHING cyclobenzaprine HCl AdvReac Intermediate too sleepy Unverified 01/04/18 13:25 [From Flexeril] ibuprofen AdvReac Intermediate burning in Unverified 01/04/18 13:25 stomach, nausea hydrocodone bitartrate AdvReac Unknown VOMITING Unverified 01/04/18 13:25 [From Vicodin] Travel Screening - Travel/Exposure Within Last 30 Days Have you traveled within the last 30 days?: No - Travel Symptoms Symptom Screening: None Review of Systems Reviewed: No additional complaints except as noted below Constitutional: Reports: As per HPI. Denies: Chills, Fever, Malaise, Night sweats, Weakness, Weight change Eyes: Reports: As per HPI. Denies: Eye discharge, Eye pain, Photophobia, Vision change ENT: Reports: As per HPI. Denies: Congestion, Dental pain, Ear pain, Epistaxis , Hearing loss, Throat pain Respiratory: Reports: As per HPI. Denies: Cough, Dyspnea, Hemoptysis, Stridor, Wheezes Cardiovascular: Reports: As per HPI. Denies: Arrhythmia, Chest pain, Dyspnea on exertion, Edema, Murmurs, Orthopnea, Palpitations, Paroxysmal nocturnal dyspnea, Rheumatic Fever, Syncope Endocrine: Reports: As per HPI. Denies: Fatigue, Heat or cold intolerance, Polydipsia, Polyuria Gastrointestinal: Reports: As per HPI. Denies: Abdominal pain, Constipation, Diarrhea, Hematemesis, Hematochezia, Melena, Nausea, Vomiting Genitourinary: Reports: As per HPI. Denies: Abnormal menses, Discharge, Dyspareunia, Dysuria, Frequency, Hematuria, Incontinence, Retention, Urgency Musculoskeletal: Reports: As per HPI. Denies: Arthralgia, Back pain, Gout, Joint swelling, Myalgia, Neck pain Skin: Reports: As per HPI. Denies: Bruising, Change in color, Change in hair/ nails, Lesions, Pruritus, Rash Neurological: Reports: As per HPI. Denies: Abnormal gait, Confusion, Headache, Numbness, Paresthesias, Seizure, Tingling, Tremors, Vertigo, Weakness Psychiatric: Reports: As per HPI. Denies: Anxiety, Auditory hallucinations, Depression, Homicidal thoughts, Suicidal thoughts, Visual hallucinations Hematological/Lymphatic: Reports: As per HPI. Denies: Anemia, Blood Clots, Easy bleeding, Easy bruising, Swollen glands Past Medical History - SOCIAL HISTORY Smoking Status: Former smoker Alcohol Use: None Drug Use: None - RESPIRATORY Hx Respiratory Disorders: Yes Hx Pulmonary Embolism: Yes (2015) Hx Sleep Apnea: Yes - CARDIOVASCULAR Hx Cardio Disorders: Yes Hx Cardiac Cath: Yes Hx Chest Pain: Yes Hx CHF: Yes Hx Edema: Yes (left sided) Hx Hypertension: Yes Hx Hypotension: Yes Hx Palpitations: Yes - NEURO Hx Neuro Disorders: Yes Hx Dizziness: Yes Hx Neuropathy: Yes (left hand) Hx Speech Problem: Yes (transient exp aphasia) Hx TIA: Yes - GI Hx GI Disorders: Yes Hx Reflux: Yes Hx Nausea/Vomiting: Yes (occasional nausea) Hx Wt Loss/Wt Gain: Yes (lost 91#) - Hx Genitourinary Disorders: Yes Hx UTI: Yes - ENDOCRINE Hx Endocrine Disorders: Yes Hx Thyroid Disease: Yes - MUSCULOSKELETAL Hx Musculoskeletal Disorders: No Hx Arthritis: Yes - PSYCH Hx Psych Problems: Yes Hx Anxiety: Yes Hx Depression: Yes - HEMATOLOGY/ONCOLOGY Hx Hematology/Oncology Disorders: Yes Hx Clotting Problems: Yes (PE) Family Medical History Any Significant Family History?: Yes Hx Anxiety: Mother Hx Cancer: Father, Mother, Brother/Sister Hx Diabetes: Grandparents Hx HTN: Brother/Sister Hx Kidney Disease: Brother/Sister *Kidney Comment: brother Hx Liver Disease: Brother/Sister *Liver Comment: sister Physical Exam - General General Appearance: Alert, Oriented x3, Cooperative, Mild distress - Head Head exam: Normal inspection - Eye Eye exam: Normal appearance, PERRL, EOMI Pupils: Normal accommodation - ENT ENT exam: Normal exam, Mucous membranes moist, Normal external ear exam, Normal orophraynx Ear exam: Normal external inspection. negative: External canal tenderness Nasal Exam: Normal inspection. negative: Discharge, Sinus tenderness Mouth exam: Normal external inspection, Tongue normal Teeth exam: Normal inspection. negative: Dental caries Throat exam: Normal inspection. negative: Tonsillar erythema, Tonsillar exudate - Neck Neck exam: Normal inspection, Full ROM. negative: Tenderness - Respiratory Respiratory exam: Normal lung sounds bilaterally. negative: Respiratory distress - Cardiovascular Cardiovascular Exam: Regular rate, Normal rhythm, Normal heart sounds - GI/Abdominal GI/Abdominal exam: Soft, Normal bowel sounds. negative: Tenderness - Rectal Rectal exam: Deferred - exam: Deferred - Extremities Extremities exam: Normal inspection, Full ROM, Normal capillary refill. negative: Tenderness - Back Back exam: Reports: Normal inspection, Full ROM. Denies: Muscle spasm, Rash noted, Tenderness - Neurological Neurological exam: Alert, CN II-XII intact, Normal gait, Oriented X3 - Psychiatric Psychiatric exam: Normal affect, Normal mood - Skin Skin exam: Dry, Intact, Normal color, Warm Course Vital Signs 05/29/18 05/29/18 05/29/18 20:17 20:59 22:14 Temperature 98.2 F Pulse Rate 73 Pulse Rate [ 60 63 Contract Technical Writer ] Respiratory 20 22 22 Rate Blood Pressure 88/46 Blood Pressure 138/76 154/73 [Left Arm] Pulse Ox 97 93 L 93 L 05/29/18 22:48 Temperature Pulse Rate Pulse Rate [ 63 Contract Technical Writer ] Respiratory 20 Rate Blood Pressure Blood Pressure 169/74 [Left Arm] Pulse Ox 95 - Reevaluation(s) Reevaluation #1: 05/29/18 23:14 pt feels better Medical Decision Making - Lab Data Result diagrams: 05/29/18 20:35 04/10/19 20:35 Lab Results 05/29/18 05/29/18 05/29/18 Range/Units 20:35 20:35 20:35 WBC 8.4 (4.2-12.2) K/uL RBC 5.17 (3.80-5.40) M/uL Hgb 12.8 (11.6-16.0) gm/dl Hct 40.7 (35.0-47.0) % MCV 78.7 L (81-97) fl MCH 24.8 L (27-33) pg MCHC 31.4 L (32-36) g/dl RDW 16.1 H (11.5-14.5) % Plt Count 325 (130-400) K/uL MPV 8.8 (7.4-10.4) fl Gran % 60.3 (47-80) % Lymphocytes % 26.8 (16-45) % Monocytes % 7.9 (0-9) % Eosinophils % 4.4 (0-6) % Basophils % 0.6 (0-6) % Sodium 141 (136-145) mmol/L Potassium 3.6 (3.4-4.5) mmol/L Chloride 103 (98-107) mmol/L Carbon Dioxide 24.0 (22-29) mmol/L Anion Gap 14.0 (7-16) BUN 16 (8-23) mg/dL Creatinine 1.0 H (0.5-0.9) mg/dL Estimated GFR 57 mL/min Random Glucose 125 H (74-109) mg/dL Calcium 9.2 (8.8-10.2) mg/dL Total Bilirubin 0.40 (0.2-1.0) mg/dL AST 18 (10.0-35.0) U/L ALT 15 (<33) U/L Alkaline Phosphatase 64 (35-104) U/L Troponin T 0.011 H (0-0.010) ng/mL NT-Pro-B Natriuret Pep 161.70 (<450) pg/mL Total Protein 6.9 (6.6-8.7) g/dL Albumin 4.0 (4.0-5.0) g/dL Globulin 2.9 (1.4-4.8) gm/dL Albumin/Globulin Ratio 1.4 (1.1-1.8) Urine Color Urine Appearance Urine pH (5.0-8.0) Ur Specific [place] (1.002-1.030) Urine Protein (NEGATIVE) Urine Glucose (UA) (NEGATIVE) Urine Ketones (NEGATIVE) Urine Blood (NEGATIVE) Urine Nitrite (NEGATIVE) Urine Bilirubin (NEGATIVE) Urine Urobilinogen (0.20 - 1.00) E.U./dL Ur Leukocyte Esterase (NEGATIVE) Urine RBC (NONE SEEN) Urine WBC (0-2/hpf) U Non-Squamous Epi Cells /hpf Urine Bacteria 05/29/18 Range/Units 22:45 WBC (4.2-12.2) K/uL RBC (3.80-5.40) M/uL Hgb (11.6-16.0) gm/dl Hct (35.0-47.0) % MCV (81-97) fl MCH (27-33) pg MCHC (32-36) g/dl RDW (11.5-14.5) % Plt Count (130-400) K/uL MPV (7.4-10.4) fl Gran % (47-80) % Lymphocytes % (16-45) % Monocytes % (0-9) % Eosinophils % (0-6) % Basophils % (0-6) % Sodium (136-145) mmol/L Potassium (3.4-4.5) mmol/L Chloride (98-107) mmol/L Carbon Dioxide (22-29) mmol/L Anion Gap (7-16) BUN (8-23) mg/dL Creatinine (0.5-0.9) mg/dL Estimated GFR mL/min Random Glucose (74-109) mg/dL Calcium (8.8-10.2) mg/dL Total Bilirubin (0.2-1.0) mg/dL AST (10.0-35.0) U/L ALT (<33) U/L Alkaline Phosphatase (35-104) U/L Troponin T (0-0.010) ng/mL NT-Pro-B Natriuret Pep (<450) pg/mL Total Protein (6.6-8.7) g/dL Albumin (4.0-5.0) g/dL Globulin (1.4-4.8) gm/dL Albumin/Globulin Ratio (1.1-1.8) Urine Color Yellow Urine Appearance Clear Urine pH 5.5 (5.0-8.0) Ur Specific [place] >= 1.030 (1.002-1.030) Urine Protein Negative (NEGATIVE) Urine Glucose (UA) Negative (NEGATIVE) Urine Ketones Trace H (NEGATIVE) Urine Blood Negative (NEGATIVE) Urine Nitrite Negative (NEGATIVE) Urine Bilirubin Negative (NEGATIVE) Urine Urobilinogen 0.2 (0.20 - 1.00) E.U./dL Ur Leukocyte Esterase Small H (NEGATIVE) Urine RBC 0 - 2 (NONE SEEN) Urine WBC 36 - 50 (0-2/hpf) U Non-Squamous Epi Cells 7 - 10 /hpf Urine Bacteria 2+ Disposition Disposition: Discharge Clinical Impression: Weakness UTI (urinary tract infection) Qualifiers: Urinary tract infection type: acute cystitis Hematuria presence: without hematuria Qualified Code(s): N30.00 - Acute cystitis without hematuria Hypotension Qualifiers: Hypotension type: unspecified hypotension type Qualified Code(s): I95.9 - Hypotension, unspecified Disposition: Home, Self-Care Condition: (1) Good Instructions: Urinary Tract Infection in Women (ED) Additional Instructions: follow up with family doctor. rest. return sooner if worse Prescriptions: Nitrofurantoin Hart [Macrobid] 100 mg PO BID #14 capsule Forms: Patient Portal Access Quality - Quality Measures Quality Measures: N/A - Blood Pressure Screening Does Patient Have Any of the Following: No Blood Pressure Classification: Normal BP Reading Systolic Measurement: 88 Diastolic Measurement: 46 Screening for High Blood Pressure: < Normal BP, F/U Not Required > [G8783]
[2018-05-30] MEDS ORDERED: NITROFURANTOIN MONO 100 MG CAPSULE PO ONE (00:38)
[2018-05-30 01:03] LABS: INR 2.2; PROTHROMBIN TIME (PATIENT) 21.6 SECONDS (9.5-12.1)
--- NOTE | 2018-05-31 12:33 | RADIOLOGY REPORT ---
EXAM: CHEST, TWO VIEWS HISTORY: DIZZINESS AND BLURRED VISION. LOW BLOOD PRESSURE. TECHNIQUE: PA and lateral upright views of the chest were obtained. Comparison: 09/03/16. FINDINGS: The heart is normal in size. There is calcification of the aorta. The mediastinum and pulmonary vasculature are normal. There are no acute infiltrates or effusions. Degenerative changes are present within the spine. IMPRESSION: NO ACUTE CHEST PATHOLOGY. JOB NUMBER: [id number] MTDD
--- NOTE | 2018-05-31 12:38 | CT SCAN REPORT ---
EXAM: CT SCAN OF THE BRAIN WITHOUT CONTRAST HISTORY: HEAD PAIN AND DIZZINESS. BLURRED VISION. TECHNIQUE: Standard CT imaging of the brain was performed in the axial plane without contrast. Additional coronal and sagittal reformatted images were also performed. Comparison: 04/23/17. FINDINGS: The brain volume is normal. Minor chronic small vessel ischemic changes are again noted within the periventricular and subcortical white matter of both cerebral hemispheres. This appears unchanged. There is no mass, mass effect, intracranial hemorrhage, visible acute infarct, or abnormal extraaxial fluid. The skull is intact. The orbits and mastoids are normal. There is a tiny mucous retention cyst within the sphenoid sinus. There are no sinus air fluid levels. IMPRESSION: 1. NO ACUTE INTRACRANIAL ABNORMALITY. 2. MINOR CHRONIC SMALL VESSEL ISCHEMIC CHANGES. JOB NUMBER: [id number] [facility]
== END 2018-05-30 02:03 | disposition home or self-care (01) ==
LOC: ER 20:02
DX: N30.00 Acute cystitis without hematuria (principal); I95.2 Hypotension due to drugs; R53.1 Weakness; R06.02 Shortness of breath; R51 Headache; R42 Dizziness and giddiness; I10 Essential (primary) hypertension; I50.9 Heart failure, unspecified; Z87.891 Personal history of nicotine dependence
CPT/HCPCS: 70450; 71046; 80053; 81001; 83880; 84484; 85025; 85610; 93005; 93010; 99283; 99284

== ENCOUNTER 2019-03-04 14:42 | Emergency (ER) | payer MEDICARE ==
[2019-03-04] MEDS ORDERED: TRANEXAMIC ACID 1,000 MG/10 ML ML TOP ONE (14:54)
--- NOTE | 2019-03-04 14:59 | Emergency Department Record ---
History of Present Illness - General Chief complaint: Nosebleed/epistaxis Stated complaint: NOSE BLEED,BLOODY STOOL Time Seen by Provider: 03/04/19 14:45 Source: Patient, Family Mode of Arrival: Ambulatory Limitations: No limitations - History of Present Illness Initial comments: 78 yo female presents with two concerns. She states she developed a nose bleed this morning. The right nostril bleed for about 20 minutes. She was at her husbands and could not come to the hospital at that time. No bleeding during this interview. She also states she has been having diarrhea for about a week. She is having 4-5 loose stools a day. The stools have become dark as well. She has some upper abdominal discomfort on and off as well. She states i t is a burning feeling in the epigastrium. She is on Coumadin. No fevers. Dr Deng is her PCP. MD complaint: Epistaxis, Other (diarrhea with dark stools) -: Hour(s) Location: Nose Severity: Moderate Quality: Aching Consistency: Constant Improves with: None Worsens with: None Context-Epistaxis: Warfarin use, Other - Related Data Previous Rx's Medication Instructions Recorded Cephalexin [Keflex] 500 mg PO QID #21 cap 03/04/19 Clotrimazole 30 ml TP BID #1 solution 03/04/19 Allergies Allergy/AdvReac Type Severity Reaction Status Date / Time codeine [CODEINE] Allergy Unknown PT UNSURE Verified 03/04/19 14:49 OF REACTION Penicillins [PENICILLINS] Allergy Unknown DIFFICULTY Verified 03/04/19 14:49 BREATHING cyclobenzaprine HCl AdvReac Intermediate too sleepy Verified 03/04/19 14:49 [From Flexeril] ibuprofen AdvReac Intermediate burning in Verified 03/04/19 14:49 stomach, nausea hydrocodone bitartrate AdvReac Unknown VOMITING Verified 03/04/19 14:49 [From Vicodin] Review of Systems Constitutional: Reports: Malaise, Weakness. Denies: Chills, Fever Eyes: Denies: Eye discharge, Eye pain, Photophobia, Vision change ENT: Reports: As per HPI, Epistaxis. Denies: Congestion, Throat pain Respiratory: Denies: Cough, Dyspnea, Hemoptysis, Stridor, Wheezes Cardiovascular: Denies: Chest pain, Palpitations, Syncope Endocrine: Reports: As per HPI, Fatigue. Denies: Polydipsia, Polyuria Gastrointestinal: Reports: As per HPI, Abdominal pain, Diarrhea, Melena, Nausea. Denies: Constipation, Hematemesis, Vomiting Genitourinary: Denies: Dysuria, Urgency Musculoskeletal: Denies: Arthralgia, Back pain, Neck pain Skin: Denies: Bruising, Change in color, Rash Neurological: Denies: Headache, Numbness, Weakness Psychiatric: Denies: Anxiety Hematological/Lymphatic: Denies: Easy bleeding, Easy bruising Past Medical History - SOCIAL HISTORY Smoking Status: Former smoker Drug Use: None - RESPIRATORY Hx Respiratory Disorders: Yes Hx Pulmonary Embolism: Yes (2015) Hx Sleep Apnea: Yes - CARDIOVASCULAR Hx Cardio Disorders: Yes Hx Cardiac Cath: Yes Hx Chest Pain: Yes Hx CHF: Yes Hx Edema: Yes (left sided) Hx Hypertension: Yes Hx Hypotension: Yes Hx Palpitations: Yes - NEURO Hx Neuro Disorders: Yes Hx Dizziness: Yes Hx Neuropathy: Yes (left hand) Hx Speech Problem: Yes (transient exp aphasia) Hx TIA: Yes - GI Hx GI Disorders: Yes Hx Reflux: Yes Hx Nausea/Vomiting: Yes (occasional nausea) Hx Wt Loss/Wt Gain: Yes (lost 91#) - Hx Genitourinary Disorders: Yes Hx UTI: Yes - ENDOCRINE Hx Endocrine Disorders: Yes Hx Thyroid Disease: Yes - MUSCULOSKELETAL Hx Musculoskeletal Disorders: No Hx Arthritis: Yes - PSYCH Hx Psych Problems: Yes Hx Anxiety: Yes Hx Depression: Yes - HEMATOLOGY/ONCOLOGY Hx Hematology/Oncology Disorders: Yes Hx Clotting Problems: Yes (PE) Family Medical History Hx Anxiety: Mother Hx Cancer: Father, Mother, Brother/Sister Hx Diabetes: Grandparents Hx HTN: Brother/Sister Hx Kidney Disease: Brother/Sister *Kidney Comment: brother Hx Liver Disease: Brother/Sister *Liver Comment: sister Physical Exam - General General Appearance: Alert, Oriented x3, Cooperative, No acute distress Limitations: No limitations - Head Head exam: Atraumatic, Normal inspection - Eye Eye exam: Normal appearance, PERRL. negative: Conjunctival injection, Scleral icterus - ENT ENT exam: Normal exam, Mucous membranes moist, Normal orophraynx. negative: Mucous membranes dry Ear exam: Normal external inspection Nasal Exam: Dried blood (right nostril lateral surface raw, ooze) Mouth exam: negative: Drooling, Muffled voice, Tongue normal Teeth exam: Normal inspection Throat exam: Normal inspection - Neck Neck exam: Normal inspection, Full ROM. negative: Lymphadenopathy, Tenderness - Respiratory Respiratory exam: Normal lung sounds bilaterally. negative: Respiratory distress - Cardiovascular Cardiovascular Exam: Regular rate, Normal rhythm, Normal heart sounds Peripheral Pulses: 2+: Radial (R), Radial (L) - GI/Abdominal GI/Abdominal exam: Soft, Tenderness (tender upper abdomen, otherwise very soft and non tender). negative: Distended, Guarding, Rebound, Rigid - Rectal Rectal exam: Heme (-) stool, Normal inspection, Normal rectal tone. negative: Black stool, Bloody stool, Decreased rectal tone, Heme (+) stool, Hemorrhoids, Mass, Tenderness - Extremities Extremities exam: negative: Calf tenderness, Tenderness - Back Back exam: Denies: CVA tenderness (R), CVA tenderness (L) - Neurological Neurological exam: Alert, Oriented X3 - Psychiatric Psychiatric exam: Normal affect, Normal mood - Skin Skin exam: Dry, Intact, Normal color, Warm Course - Reevaluation(s) Reevaluation #1: 03/04/19 15:10 Nasal Examination Mild oozing from the right nostril TXA was atomized sprayed in the nostril This was followed by 2cm Merocel packing She tolerated this well without bleeding. 03/04/19 15:23 The CBC was reviewed The WBC and Hgb are normal 03/04/19 15:27 On rectal examination she has medium brown stool without visible blood The stool is Heme negative 03/04/19 15:31 INR is 3.0 Given her pain at times this week CT was ordered of the abdomen and pelvis Based on the labs and physical examination no evidence of acute bleeding currently 03/04/19 15:42 The CR is 1.1 with GFR decreased to 51 03/04/19 16:[address] scan is negative for new acute changes Dr Deng was contacted and updated on his patient She will return on Sunday for packing removal and sooner if any new concerns No evidence for bleeding today. Medical Decision Making - Lab Data Result diagrams: 03/04/19 15:05 03/04/19 15:05 Disposition Disposition: Discharge Clinical Impression: Epistaxis Diarrhea Qualifiers: Diarrhea type: unspecified type Qualified Code(s): R19.7 - Diarrhea, unspecified Disposition: Home, Self-Care Condition: (1) Good Instructions: Nosebleed (ED) Additional Instructions: Review this ER visit and the tests performed with your family doctor Call your doctor for the next available follow up appointment Return to the ER for a recheck immediately if worse, any new concerns or questions Take the prescriptions provided as directed Prescriptions: Clotrimazole 30 ml TP BID #1 solution Cephalexin [Keflex] 500 mg PO QID #21 cap Forms: Patient Portal Access Time of Disposition: 16:36 Quality - Quality Measures Quality Measures: N/A - Blood Pressure Screening Does Patient Have Any of the Following: No Blood Pressure Classification: Normal BP Reading Systolic Measurement: 114 Diastolic Measurement: 70 Screening for High Blood Pressure: < Normal BP, F/U Not Required > [G8783]
[2019-03-04 15:15] LABS: ABSOLUTE NEUTROPHIL COUNT 5.53; BASO % 0.5 % (0-6); EOS % 3.9 % (0-6); HEMATOCRIT 42.2 % (35.0-47.0); LYMPH % 21.8 % (16-45); MEAN CELL VOLUME 77.6 fl (81-97); MEAN CORPUSCULAR HGB CONC 30.8 g/dl (32-36); MEAN PLATELET VOLUME 8.8 fl (7.4-10.4); MONO % 9.8 % (0-9); PLATELET COUNT 351 K/uL (130-400); RED BLOOD COUNT 5.44 M/uL (3.80-5.40); RED CELL DISTRIBUTION WIDTH 16.6 % (11.5-14.5); WHITE BLOOD COUNT W/O DIFF 8.6 K/uL (4.2-12.2)
[2019-03-04 15:17] LABS: MEAN CORPUSCULAR HEMOGLOBIN 23.8 pg (27-33)
[2019-03-04 15:23] LABS: CREATININE 1.1 mg/dL (0.5-0.9)
[2019-03-04 15:27] LABS: PARTIAL THROMBOPLASTIN TIME 35.7 SECONDS (24.5-39.1); PROTHROMBIN TIME (PATIENT) 29.1 SECONDS (9.5-12.1)
--- NOTE | 2019-03-04 16:26 | CT SCAN REPORT ---
EXAMINATION: CT Abdomen and Pelvis without Contrast EXAM DATE: 03/04/2019 4:07 PM TECHNIQUE: Spiral CT images were obtained from the lung bases to the ischial tuberosities without int ravenous contrast. Coronal and sagittal 2-D reconstructions were made from source images. INDICATION: epigastric and right flank pain COMPARISON: 12/07/2016. FINDINGS: Evaluation of solid organs is degraded due to lack of intravenous contrast. Abdomen: The liver, spleen, pancreas, adrenals, and kidneys are normal. Previous cholecystectomy with focal bi liary dilation again seen. This may be normal postsurgical appearance versus a choledochal cyst. It i s unchanged from the previous exam. No free fluid or free air. Suboptimal evaluation of bowel due to nondistention and lack of oral contrast. No bowel dilation. There is a small hiatal hernia. Pelvis: The pelvic organs are unremarkable. No free fluid or free air. No inflammatory change. IMPRESSION: 1. No acute abnormality. 2. 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 Dictated by: Chi Clemons MD on 03/04/2019 4:14 PM. .
[2019-03-04] MEDS ORDERED: CLOTRIMAZOLE 1% 30 GM CREAM TP SCH (22:00)
== END 2019-03-04 16:51 | disposition home or self-care (01) ==
LOC: ER 14:42
DX: R04.0 Epistaxis (principal); R19.7 Diarrhea, unspecified; J44.9 Chronic obstructive pulmonary disease, unspecified; I10 Essential (primary) hypertension; I50.9 Heart failure, unspecified; Z79.01 Long term (current) use of anticoagulants; Z87.891 Personal history of nicotine dependence
CPT/HCPCS: 30901; 74176; 80048; 85025; 85610; 85730; 99284